=== PATIENT | male | born 1960 | race Hispanic/Latino ===

== ENCOUNTER 2021-09-11 18:05 | Emergency (ER) | payer OTHER ==
[2021-09-11 20:47] VITALS: BP 122/84
[2021-09-11 21:50] LABS: Alanine Aminotransferase 74 units/L (7-56); Albumin 4.8 g/dL (3.9-5); Blood Urea Nitrogen 7 mg/dL (9-20); Calcium 9.8 mg/dL (8.4-10.2); Hemolysis Index 14
[2021-09-11 21:53] LABS: BUN/Creatinine Ratio 10
[2021-09-11 21:55] LABS: Basophils # (Auto) 0.1 K/mm3 (0.0-0.1); Basophils % (Auto) 1.6 % (0.0-1.8); Eosinophils # (Auto) 0.1 K/mm3 (0.0-0.4); Eosinophils % (Auto) 2.8 % (0.0-4.3); Hematocrit 39.1 % (35.5-45.6); Lymphocytes # (Auto) 1.6 K/mm3 (1.2-5.4); Mean Corpuscular HGB Conc 33 % (32-34); Mean Corpuscular Volume 118 fl (84-94); Monocytes # (Auto) 0.4 K/mm3 (0.0-0.8); Monocytes % (Auto) 9.2 % (0.0-7.3); Platelet Count 216 K/mm3 (140-440); Red Blood Count 3.33 M/mm3 (3.65-5.03); Red Cell Distribution Width 16.9 % (13.2-15.2)
[2021-09-11 22:58] LABS: Bilirubin,Urine NEG (Negative); Blood,Urine NEG (Negative); Color,Urine Yellow (Yellow); Protein,Urine <15 mg/dL mg/dL (Negative); WBC,Urine < 1.0 /HPF (0.0-6.0)
[2021-09-11 23:09] LABS: Amphetamine Screen,Urine PRESUMPTIVE NEGATIVE; Benzodiazepines Screen,Urine PRESUMPTIVE NEGATIVE; Cannabinoid Screen,Urine PRESUMPTIVE NEGATIVE; Cocaine Screen,Urine PRESUMPTIVE NEGATIVE; Methadone Screen,Urine PRESUMPTIVE NEGATIVE; Opiate Screen,Urine PRESUMPTIVE NEGATIVE
--- NOTE | 2021-09-12 01:01 | Emergency Department Report ---
ED Medical Clearance HPI - General Chief complaint: Medical Clearance Stated complaint: BLOOD ALCOHOL LAB WORK Source: patient Mode of arrival: Ambulatory - History of Present Illness Initial comments: Patient is a 61-year-old male with a history of chronic alcohol abuse who presents to the ED for medical clearance after being admitted at a rehab facility for alcohol abuse. Patient states that he has been abusing alcohol for many years and decided that it is time for him to get alcohol rehab in order to "get my act right". Patient states the last time he drank alcohol was 3 hours prior to arrival in the ED. Patient denies dizziness, syncope, chest pain, shortness of breath, nausea and vomiting, diarrhea, dysuria, urinary frequency and urgency, tingling or numbness of upper and lower extremities bilaterally, change in vision, seizures, headache, fever and chills or abdominal pain. MD Complaint: medical clearance request (admitted for alcohol rehab) -: Gradual, year(s) (chronic alcoholic, going for alcohol rehab) Reason for Medical Clearance: psychiatric condition (chronic alcoholic, admitted for alcohol rehab) Place: home Alledged Intoxication: Yes Compliant with Home Medications: No Traumatic Symptoms: denies traumatic injury Associated Symptoms: denies: chest pain, shortness of breath, palpitations, diaphoresis, confusion, cough, headaches, anorexia, malaise, nausea/vomiting, rash, seizure, syncope, weakness Treatments Prior to Arrival: none Allergies/Adverse reactions: Allergies Allergy/AdvReac Type Severity Reaction Status Date / Time No Known Allergies Allergy Verified 09/11/21 20:45 ED Review of Systems ROS: Stated complaint: BLOOD ALCOHOL LAB WORK Other details as noted in HPI Constitutional: denies: chills, fever Eyes: denies: eye pain, eye discharge, vision change ENT: denies: ear pain, throat pain Respiratory: denies: cough, shortness of breath, wheezing Cardiovascular: denies: chest pain, palpitations Endocrine: no symptoms reported Gastrointestinal: denies: abdominal pain, nausea, vomiting, diarrhea Genitourinary: denies: urgency, dysuria Musculoskeletal: denies: back pain, joint swelling, arthralgia Skin: denies: rash, lesions Neurological: denies: headache, weakness, paresthesias Psychiatric: anxiety. denies: depression Hematological/Lymphatic: denies: easy bleeding, easy bruising ED Past Medical Hx - Past Medical History Previous Medical History?: No - Surgical History Past Surgical History?: No ED Physical Exam - General Limitations: No Limitations General appearance: alert, in no apparent distress - Head Head exam: Present: atraumatic, normocephalic, normal inspection - Eye Eye exam: Present: normal appearance, PERRL, EOMI Pupils: Present: normal accommodation - ENT ENT exam: Present: normal exam, normal orophraynx, mucous membranes moist, TM's normal bilaterally, normal external ear exam - Neck Neck exam: Present: normal inspection, full ROM - Respiratory Respiratory exam: Present: normal lung sounds bilaterally. Absent: respiratory distress, wheezes, rales, rhonchi, chest wall tenderness, accessory muscle use, decreased breath sounds, prolonged expiratory - Cardiovascular Cardiovascular Exam: Present: regular rate, normal rhythm, tachycardia, normal heart sounds. Absent: systolic murmur, diastolic murmur, rubs, gallop - GI/Abdominal GI/Abdominal exam: Present: soft, normal bowel sounds. Absent: distended, tenderness, guarding, hyperactive bowel sounds, hypoactive bowel sounds, organomegaly, mass - Extremities Exam Extremities exam: Present: normal inspection, full ROM, normal capillary refill - Back Exam Back exam: Present: normal inspection, full ROM. Absent: tenderness, CVA tenderness (R), CVA tenderness (L), muscle spasm, paraspinal tenderness, vertebral tenderness - Neurological Exam Neurological exam: Present: alert, oriented X3, CN II-XII intact, normal gait, reflexes normal - Psychiatric Psychiatric exam: Present: normal affect, normal mood - Skin Skin exam: Present: warm, dry, intact, normal color. Absent: rash ED Course Vital Signs 09/11/21 20:45 Temperature 98.2 F Pulse Rate 105 H Respiratory 18 Rate Blood Pressure 122/84 [Left] O2 Sat by Pulse 100 Oximetry ED Medical Decision Making - Lab Data Result diagrams: 09/11/21 21:17 09/11/21 21:17 - Medical Decision Making This is a 61-year-old male with a history of chronic alcohol abuse who presents to the ED for medical clearance after being admitted at a rehab facility for alcohol abuse. Patient states that he has been abusing alcohol for many years and decided that it is time for him to get alcohol rehab in order to "get my act right". Patient states the last time he drank alcohol was 3 hours prior to arrival in the ED. in the ED, patient is alert and oriented x3 and is not in any distress, pleasant, fully cooperative during the physical exam. Lab test results were reviewed and are all nonactionable except for alcohol level of 0.28. Patient family present during the patient visit to the ED, and patient was cleared for alcohol rehab in the presence of his family who took him to the rehab center. Patient was otherwise advised return to the ED immediately if symptoms get worse. - Differential Diagnosis chronic alcohol abuse; anxiety and depression ED Disposition Clinical Impression: Medical clearance for psychiatric admission, Chronic alcohol abuse Disposition: 01 HOME / SELF CARE / HOMELESS Is pt being admited?: No Does the pt Need Aspirin: No Condition: Stable Instructions: Alcohol Intoxication, [id number], Alcohol Abuse and Dependence Information, Adult, Preventive Care 40-64 Years Old, Male Additional Instructions: All lab test results were reviewed and are all nonactionable except for alcohol level of 0.28. You are therefore medically cleared for admission for alcohol detox and rehab program. Return to the ED immediately if your symptoms get worse. Referrals: PRIMARY CARE, [Primary Care Provider] - 3-5 Days Time of Disposition: 01:01 Print Language: AZERI
== END 2021-09-12 01:30 | disposition home or self-care (01) ==
LOC: ED 18:05
DX: Z04.6 Encounter for general psychiatric examination, requested by authority (principal); F10.10 Alcohol abuse, uncomplicated; Z79.899 Other long term (current) drug therapy
CPT/HCPCS: 36415; 80053; 80307; 80320; 81001; 84443; 85025; 99283; G0480